=== PATIENT | male | born 1965 | race Caucasian/White ===

== ENCOUNTER 2020-01-08 17:22 | Emergency (ER) | payer MEDICAID ==
[~2020-01-08] VITALS: Ht 180.3 cm; Wt 81.1 kg
[2020-01-08 17:23] VITALS: BP 149/93
[2020-01-08] MEDS ORDERED: PENI500T2 PO (17:53)
[2020-01-08] MEDS ORDERED: ibuprofen tablet 400 MG TABLET PO ONE (17:55)
== END 2020-01-08 18:09 | disposition home or self-care (01) ==
LOC: ER 17:22
DX: K04.7 Periapical abscess without sinus (principal); Z79.2 Long term (current) use of antibiotics
CPT/HCPCS: 41800; 99283; 99284